=== PATIENT | female | born 2000 | race Hispanic/Latino ===

== ENCOUNTER 2020-09-01 15:55 | Emergency (ER) | payer OTHER, SELFPAY ==
[2020-09-01 15:59] VITALS: BP 103/68; PULSE 70; RESP 16; TEMP 37.2; O2SAT 100; BMI 26.2
--- NOTE | 2020-09-01 16:13 | RAD_ITS ---
STUDY: X-RAY - RIGHT HAND, ATTENTION FIRST FINGER REASON FOR EXAM: Female, 19 years old. Thumbs caught in a press machine at work. TECHNIQUE: 3 view(s) of the finger were obtained. COMPARISON: None. FINDINGS: Normal metacarpal head. Normal metacarpophalangeal joint. Normal proximal phalanx. Normal middle phalanx. Normal distal phalanx. Normal proximal interphalangeal joint. Normal distal interphalangeal joint. There is no demonstrated fracture. RAD/Finger(s) Min 2 Views IMPRESSION: Normal x-ray examination of the right thumb. Electronically Signed: Tyrese Andrews MD at 17:15 EDT , Service support ,
--- NOTE | 2020-09-01 16:14 | EDS_ITS ---
HPI History of Present Illness Chief Complaint: Trauma Detail of Chief Complaint: Injury to both thumbs while at work Informant: patient Narrative Narrative: Patient presents to the emergency department via EMS after having her thumbs caught in a press at work. Patient is right-hand dominant. She is unsure of her last tetanus shot. She has no medical history. [facility] Home Medications NK 09/01/20 [History Last Taken Unknown] Allergy/AdvReac Type Severity Reaction Status Date / Time No Known Allergies Allergy Verified 09/01/20 16:02 Social History Smoking Status: Never smoker ROS ROS ED Constitutional Constitutional ED: Reports systems reviewed and no addt'l complaints, except as documented; Denies body ache(s), change in weight or chills Eyes Eyes: Denies acute decrease in peripheral vision, change in vision, double vision or loss of vision ENT ENT ED: Reports none; Denies ear pain, lip swelling, loss taste/smell, neck pain, otalgia or sore throat Cardiovascular Cardiovascular: Reports none; Denies abdominal pain, chest pain with activity, leg edema, lightheadedness, palpitations, rapid heart rate or syncope Respiratory/Chest Respiratory/Chest: Reports none; Denies change in mental status, dry cough, dyspnea, hemoptysis, shortness of breath at rest or shortness of breath with exertion Gastrointestinal Gastrointestinal: Reports none; Denies abdominal pain, change in stool character, diarrhea, hematemesis, hematochezia, melena, rectal bleeding or vomiting Genitourinary Genitourinary ED: Reports none; Denies abdominal discomfort, anuria, dysuria, genital pain or polyuria Musculoskeletal Musculoskeletal: Reports none and other Details: Bilateral thumb pain ; Denies arthralgias, back pain, difficulty walking, extremity pain, muscle weakness or myalgias Integumentary Reports none; Denies abscess or rash Neurologic Neurologic: Reports none; Denies abnormal gait, confusion, focal weakness, frequent falls, headache(s), loss of vision, numbness, paresthesias, radicular pain, vertigo or weakness Psychiatric Psychiatric: Reports systems reviewed and no addt'l complaints, except as documented and none; Denies behavioral changes, confusion, difficulty concentrating, hallucinations, suicidal ideation, tactile hallucinations or visual hallucinations Endocrine Endocrinology: Denies none, cold intolerance, excessive sweating, fatigue or heat intolerance Hematologic/Lymphatic Hematologic/Lymphatic: Reports none; Denies anemia, easy bleeding or easy bruising Allergic/Immunologic Allergic/Immunologic ED: Denies as per HPI, none, lip swelling, mouth swelling, throat swelling, tongue swelling or hives EXAM Physical Exam Const Vital Signs: 09/01/20 15:59 Temperature 99 F Temperature Source Oral Pulse Rate 70 Respiratory Rate 16 Blood Pressure 103/68 Blood Pressure Mean 79 Pulse Ox 100 Oxygen Delivery Method Room Air Positive well nourished and well developed General Appearance ED: well developed and NAD HEENT Reports TM's clear and moist mucous membranes normocephalic and atraumatic; Negative for trauma or tenderness Tympanic Membrane ED: Yes TM's clear Eyes PERRL and EOMs intact bilaterally General Eye ED: Negative for pale conjunctiva or scleral icterus Neck no lymphadenopathy, supple and no JVD General: Negative for tenderness Chest Wall inspection of chest normal and palpation of chest normal Chest: Negative for tenderness Resp normal respiratory effort and clear to auscultation bilaterally Effort and Inspection: Negative for respiratory distress or pain with movement Auscultation: Negative for rhonchi, wheezes or diminished lung sounds Cardio regular rate, regular rhythm, S1 normal heart sound, S2 normal heart sound and no murmurs Peripheral Pulses: pulses 2+ throughout GI normal to inspection, nondistended, normoactive bowel sounds, soft to palpation, non-tender, non-distended and no masses Back/Spine no CVA tenderness and no thoracic nor lumbar tenderness Extremity normal to inspection Extremity Narrative: Evaluation of the right thumb does reveal a skin avulsion over the lateral aspect of the distal phalanx of the thumb with no significant active bleeding. She got some diffuse tenderness over the distal phalanx. She has normal range of motion flexion extension at the IP joint. Neurovascular intact distally. Evaluation of the left thumb-patient has a 1.5 cm flap-like laceration over the pulp and lateral aspect of the distal phalanx. She got good range of motion at the IP joint with normal flexion extension. She is neurovascular intact distally. General Extremety ED: Negative for edema General Extremity: Negative for edema Neuro oriented x3, CN's II-XII intact bilaterally, no sensory deficits noted and gait normal Sensorium / Orientation: awake, alert, oriented to person, oriented to place and oriented to time Motor Exam: strength 5/5 throughout and strength abnormal Psych mental status grossly normal Skin no rashes or lesions noted and no wounds MDM MDM MDM Narrative Medical decision making narrative: X-rays of patient's thumbs obtained interpreted by myself as no acute fractures. Patient had Gelfoam applied to the skin avulsion on the right thumb and clean dressing applied. The flap superficial skin laceration of the left thumb did not require any type of repair. Radiography Diagnostic Testing: Three-view x-rays of right and left thumbs obtained interpreted by myself as no acute fractures or dislocations. Discharge Plan Triage Chief Complaint: Trauma ED Provider: Martin Jansen Dx/Rx/DC Orders Clinical Impression: Crush injury of hand, Avulsion of skin Instructions: ED Crush Injury, Hand, ED Skin Avulsion Prescriptions: No Action NK RF: 0 Primary Care Provider: NOT,DEFINED Referrals: [facility] [GROUP OF PHYSICIANS] - 3-5 Days NOT,DEFINED [Primary Care Provider] - Disposition Disposition: Home, Self Care
--- NOTE | 2020-09-01 16:16 | RAD_ITS ---
STUDY: X-RAY - LEFT HAND, ATTENTION FIRST FINGER REASON FOR EXAM: Female, 19 years old. Thumbs caught in a press machine at work. TECHNIQUE: 3 view(s) of the finger were obtained. COMPARISON: None. FINDINGS: Normal metacarpal head. Normal metacarpophalangeal joint. Normal proximal phalanx. Normal middle phalanx. Normal distal phalanx. Normal proximal interphalangeal joint. Normal distal interphalangeal joint. There is no demonstrated fracture. RAD/Finger(s) Min 2 Views IMPRESSION: Normal x-ray examination of the finger. Electronically Signed: Tyrese Andrews MD at 17:14 EDT , Service support ,
[2020-09-01] MEDS: Diphth,Pertuss(Acell),Tet Vac 0.5 ML Vial IM (17:44)
== END 2020-09-01 17:59 | disposition home or self-care (01) ==
PROVIDERS: Emergency Provider Emergency Medicine
DX: S61.001A Unspecified open wound of right thumb without damage to nail, initial encounter (principal); W23.0XXA Caught, crushed, jammed, or pinched between moving objects, initial encounter
CPT/HCPCS: 73140; 90471; 90715; 99285